=== PATIENT | female | born 1965 | race Caucasian/White ===

== ENCOUNTER 2017-08-25 12:17 | Day surgery (SDC) | payer OTHER, BC ==
[~2017-08-25 12:17] MED LIST: Acetaminophen/HYDROcodone 325-5 MG Tab PO PRN; Lactated Ringers 1,000 ML IV SCH; Lidocaine 1% 20 ML MDV ONE; Lidocaine 2% 5 ML SDV ONE; Midazolam 1 MG/ML 2 ML SDV ONE; Ondansetron 4 MG/2 ML SDV ONE; Propofol 200 MG/20 ML SDV ONE; ceFAZolin 1 GM in Premix Bag 1 BAG IV SCH; ceFAZolin 2 GM in Premix Bag 1 BAG IV SCH; fentaNYL 100 MCG/2 ML SDV ONE
--- NOTE | 2017-08-25 13:18 | PCM.PREANE ---
Preanesthetic Assessment - Anesthesia/Transfusion/Family Hx Anesthesia History: Prior Anesthesia Without Reaction Family History of Anesthesia Reaction: No Transfusion History: Prior Transfusion Without Reaction - Review of Systems General: No Symptoms Pulmonary: No Symptoms Cardiovascular: No Symptoms Gastrointestinal: No Symptoms Neurological: No Symptoms Other: Reports: None - Physical Assessment NPO Status Date: 08/24/17 NPO Status Time: 19:00 O2 Sat by Pulse Oximetry: 96 Respiratory Rate: 16 Vital Signs: Last Vital Signs Temp 36.8 C 08/25/17 12:30 Pulse 78 08/25/17 12:30 Resp 16 08/25/17 12:30 BP 122/61 08/25/17 12:30 Pulse Ox 96 08/25/17 12:30 Height: 1.63 m Weight: 77.111 kg ASA Class: 2 Mental Status: Alert & Oriented x3 Airway Class: Mallampati = 1 Dentition: Reports: Normal Dentition ROM/Head Extension: Full Lungs: Clear to Auscultation, Normal Respiratory Effort Cardiovascular: Regular Rate, Regular Rhythm - Allergies Allergies/Adverse Reactions: Allergies Allergy/AdvReac Type Severity Reaction Status Date / Time ketorolac [From Toradol] Allergy Rash Verified 08/19/17 10:25 - Anesthesia Plan Pre-Op Medication Ordered: None - Acknowledgements Anesthesia Type Planned: General Anesthesia Pt an Appropriate Candidate for the Planned Anesthesia: Yes Alternatives and Risks of Anesthesia Discussed w Pt/Guardian: Yes Pt/Guardian Understands and Agrees with Anesthesia Plan: Yes Additional Comments: pmh: htn, hld PreAnesthesia Questionnaire HEENT History: Reports: Other (See Below) Other HEENT History: wears glasses Cardiovascular History: Reports: Hypertension Genitourinary History: Reports: None 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: Musculoskeletal History: Reports: Other (See Below) Other Musculoskeletal History: back spasms Hematologic History: Reports: Anemia, Blood Transfusion(s) Other Hematologic History: blood transfusion after hysterectomy - Past Surgical History Head Surgeries/Procedures: Reports: None Female Surgical History: Reports: Breast Biopsy, Hysterectomy Oncologic Surgical History: Reports: Biopsy of Breast - SUBSTANCE USE Smoking Status *Q: Former Smoker Tobacco Use Within Last Twelve Months: No Recreational Drug Use History: No - HOME MEDS Home Medications: Home Meds Cholecalciferol (Vitamin D3) [Vitamin D3] 2,000 units PO DAILY 08/19/17 [History ] Ibuprofen 2 - 3 tab PO ASDIRECTED PRN 08/19/17 [History] Lisinopril 10 mg PO DAILY 08/19/17 [History] - CURRENT (IN HOUSE) MEDS Current Meds: Current Medications Hydrocodone Bitart/Acetaminophen (Macon 325-5 Mg) 1 - 2 tab PO Q4H PRN PRN Reason: Pain Lactated Ringer's (Ringers, Lactated) 1,000 mls @ 100 mls/hr IV ASDIRECTED ELAINE Last Admin: 08/25/17 12:40 Dose: 100 mls/hr Cefazolin Sodium/Dextrose 1 gm (/ Premix) 50 mls @ 100 mls/hr IV ONCALL [facility] Discontinued Medications Fentanyl (Sublimaze) Confirm Administered Dose 100 mcg .ROUTE .STK-MED ONE Stop: 08/25/17 11:43 Cefazolin Sodium/Dextrose 2 gm (/ Premix) 50 mls @ 100 mls/hr IV ONCALL [facility] Lidocaine (Xylocaine-Mpf 2%) Confirm Administered Dose 5 ml .ROUTE .STK-MED ONE Stop: 08/25/17 11:43 Lidocaine HCl (Xylocaine 1%) Confirm Administered Dose 20 ml .ROUTE .STK-MED ONE Stop: 08/25/17 07:29 Midazolam HCl (Versed 1 Mg/Ml) Confirm Administered Dose 2 mg .ROUTE .STK-MED ONE Stop: 08/25/17 11:43 Ondansetron HCl (Zofran) Confirm Administered Dose 4 mg .ROUTE .STK-MED ONE Stop: 08/25/17 11:43 Propofol (Diprivan 20 Ml) Confirm Administered Dose 800 mg .ROUTE .STK-MED ONE Stop: 08/25/17 11:43
[2017-08-25] MEDS ORDERED: HYDROmorphone 2 MG/ML Syringe ONE (14:53)
[2017-08-25] MEDS ORDERED: Phenylephrine/Normal Saline 100 MCG/ML 10 ML Syringe ONE (15:17)
--- NOTE | 2017-08-25 15:34 | PCM.OPNOTE ---
- General Post-Op/Procedure Note Date of Surgery/Procedure: 08/25/17 Operative Procedure(s): L knee arthroscopy with chondroplasty of the medial femoral condyle and arthroscopically aided treatment of medial tibial plateau fracture Post-Op Diagnosis: L knee DJD, left medial tibial plateau fracture Primary Surgeon: Samantha Melo Senior Courtroom Clerk: Millie Srinivasan in mLs: 5 Condition: Good Free Text/Narrative:: tt=32 min #[id number]
[2017-08-25] MEDS: fentaNYL 100 MCG/2 ML SDV IVPUSH PRN ×2 (15:45→16:48)
--- NOTE | 2017-08-25 15:53 | PCM.POSTAN ---
POST ANESTHESIA ASSESSMENT - MENTAL STATUS Mental Status: Alert, Oriented - RESPIRATORY Respiratory Status: Respiratory Rate WNL, Airway Patent, O2 Saturation Stable - CARDIOVASCULAR CV Status: Pulse Rate WNL, Blood Pressure Stable - GASTROINTESTINAL GI Status: No Symptoms - POST OP HYDRATION Hydration Status: Adequate & Stable
--- NOTE | 2017-08-25 16:14 | PCM48HPAN ---
Post Anesthesia Note - EVALUATION WITHIN 48HRS OF ANESTHETIC Vital Signs in Normal Range: Yes Patient Participated in Evaluation: Yes Respiratory Function Stable: Yes Airway Patent: Yes Cardiovascular Function Stable: Yes Hydration Status Stable: Yes Pain Control Satisfactory: Yes Nausea and Vomiting Control Satisfactory: Yes Mental Status Recovered: Yes
--- NOTE | 2017-08-25 16:56 | CR ---
EXAMINATION: Unspecified knee HISTORY: Surgery COMPARISON: MRI dated 05/21/2017 TECHNIQUE: 5 operative control films provided. FINDINGS/IMPRESSION: Control films demonstrate hardware projecting over the tibial plateau likely the left knee.
--- NOTE | 2017-08-25 20:52 | OR ---
SURGEON: Samantha Melo MD DATE OF PROCEDURE: 08/25/2017 PREOPERATIVE DIAGNOSES: 1. Left knee degenerative joint disease. 2. Left knee medial tibial plateau fracture. POSTOPERATIVE DIAGNOSES: 1. Left knee degenerative joint disease. 2. Left knee medial tibial plateau fracture. PROCEDURE: 1. Left knee arthroscopy with chondroplasty of the medial femoral condyle. 2. Arthroscopically aided treatment of a left medial tibial plateau fracture. LYE PEEL OPERATOR: CHRIS Laura. ANESTHESIA: General. ESTIMATED BLOOD LOSS: 5 mL. TOURNIQUET TIME: 32 minutes. COMPLICATIONS: None. DVT PROPHYLAXIS: PAS boot and MARLYN hose to the nonoperative leg. IMPLANTS USED: None. BRIEF HISTORY: Danie is a 52-year-old female who sustained an injury to her left knee approximately one year ago while at work. She has continued to have pain. An MRI did show a fracture of the medial tibial plateau. Due to her lack of response to conservative treatment, I did recommend surgical intervention. The risks and goals of the procedure were discussed with the patient and were documented preoperatively. She agreed to proceed. DESCRIPTION OF PROCEDURE: The patient was properly identified and brought to the operating room. She was transferred from the OR cart and placed on the operating table in a supine position. General anesthesia was administered. After adequate anesthesia was obtained, a well-padded tourniquet was applied to the left lower extremity. The left lower extremity was then prepped in a standard fashion using ChloraPrep solution. It was then sterilely draped. A time-out was performed to ensure correct site and procedure. Preoperative antibiotics were given. The surgical site had been marked preoperatively. An Esmarch was used to exsanguinate the left lower extremity, and the tourniquet was inflated to 250 mmHg. Lateral portal arthrotomy was established. Blunt trocar and cannula were introduced into the suprapatellar space. Camera, inflow, and outflow were assembled. The suprapatellar pouch showed no signs of synovitis. The patellofemoral joint was then visualized. Minor grade 1 to grade 2 chondromalacia was noted diffusely. The patella tracked centrally. I then extended down the lateral and medial gutter. No loose bodies were identified. I then entered the medial compartment. A medial portal arthrotomy was then established. A blunt probe was inserted. The meniscus was extensively probed. No tearing of the meniscus was noted. She did have some loose cartilaginous flaps along the medial femoral condyle. A chondroplasty was performed as this was resected back to a stable remnant. She had diffuse grade 3 chondromalacia along the medial femoral condyle. The medial tibial plateau showed diffuse grade 2 to grade 3 chondromalacia as well. I then entered the notch. Both the ACL and PCL were visualized and probed and found to be intact. I finally entered the lateral compartment. The meniscus was again probed and found to be stable. The joint surfaces showed diffuse grade 2 chondromalacia. Instruments were then removed from the knee. The MRI was visualized in the room. The bone marrow lesion was identified in all 3 planes. It appeared to involve the lateral aspect of the medial tibial plateau. A hollow-bore needle from [employer] was then placed into the approximate area of the bone marrow lesion. Its position was checked in both the AP and lateral planes and was drilled. Three side port fenestrations were visualized on the C-arm which appeared to be directly within the area of the bone marrow lesion. Calcium phosphate cement was then injected. I injected 4 mL of cement. I was able to see the blush of the cement on the C-arm. I then re-entered the knee joint to visualize the medial tibial plateau. There was no extravasation of the cement. An additional mL of cement was then placed with little resistance. No extravasation was noted at this point either. The instruments were then removed from the knee joint, and the portal sites were closed with 3-0 nylon. The fenestrated needle was then kept in place for 10 minutes as the cement was allowed to cure. It was then removed. Final C-arm images confirmed good fill of cement in the vicinity of the bone marrow lesion in both the AP and lateral views. The needle tract was closed with an interrupted 3-0 nylon. 1% lidocaine was injected along the portal tracts. Xeroform gauze was placed over the wounds, and a bulky dressing was applied. Tourniquet was then deflated. She was awakened from her anesthetic and transferred back to the operating room cart. She was brought to the recovery room in stable condition. All needle and sponge counts were correct. CELESTE / SHAUN /[id number]
== END 2017-08-25 17:50 | disposition home or self-care (01) ==
LOC: MW.SDS 12:17
PROVIDERS: ATTEND Orthopaedic Surgery
DX: S82.132A Displaced fracture of medial condyle of left tibia, initial encounter for closed fracture (principal); M17.12 Unilateral primary osteoarthritis, left knee; M94.262 Chondromalacia, left knee; I10 Essential (primary) hypertension; Z87.891 Personal history of nicotine dependence; Z88.6 Allergy status to analgesic agent; Z79.899 Other long term (current) drug therapy; Z90.710 Acquired absence of both cervix and uterus; Z98.890 Other specified postprocedural states
CPT/HCPCS: 29877; 76000; A9270; J0690; J1170; J2250; J2405; J3010; J7120; 01400; 88304; C1713; J2704

== ENCOUNTER 2021-09-25 08:14 | Observation (INO) | payer BC, OTHER ==
[2021-09-25] MEDS ORDERED: Sodium Chloride 0.9% 1,000 ML IV ONE (08:47)
[2021-09-25] MEDS ORDERED: Sodium Chloride 0.9% 10 ML Syringe FLUSH PRN (08:47)
[2021-09-25] MEDS ORDERED: Sodium Chloride 0.9% 2.5 ML Syringe FLUSH PRN (08:47)
[2021-09-25] MEDS ORDERED: Ondansetron 4 MG/2 ML SDV IVPUSH ONE ×2 (08:58→11:22)
[2021-09-25] MEDS ORDERED: HYDROmorphone 2 MG/ML Syringe IVPUSH ONE (08:58)
--- NOTE | 2021-09-25 09:19 | EDM.PDOC ---
<Odell Barnard - Last Filed: 09/25/21 12:01> ED HPI GENERAL MEDICAL PROBLEM - General Chief Complaint: Abdominal Pain Stated Complaint: R SIDE PAIN Time Seen by Provider: 09/25/21 08:19 - History of Present Illness INITIAL COMMENTS - FREE TEXT/NARRATIVE: 56-year-old female with history of ulcerative colitis and ileostomy performed 26 years ago presents with complaints of right upper quadrant pain and nausea for the past 3 months which is significantly worsened over the past 24 hours. 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 This morning at work her chronic right upper quadrant pain significantly worsened to 8/10 pain which is now radiating to the back. As per patient, she had ulcerative colitis 26 years ago and had ileostomy done with no follow-up. She has not had a CT scan since and is not following GI. She recently saw general surgery who has scheduled her for CT abdomen next week. Patient has a history of hypertension. Patient is taking gabapentin and lisinopril. Patient states she takes ibuprofen multiple times a week. No history of ulcers or GERD. Denies chest pain, palpitations, lightheadedness, loss of consciousness, shortness of breath, cough, fever or chills. Patient has ileostomy placed in the right lower quadrant which is CDI. Denies changes in stool color. No bloody stools or dark-colored stools. Denies history of gallbladder disease. Patient had a hysterectomy 12 years ago. Denies smoking. Denies alcohol use. Denies drug use. Currently not sexually active. CBC unremarkable. Lipase 774. UA: Trace leukocyte esterase, culture pending. Awaiting ultrasound results. Patient made n.p.o. Patient has received Dilaudid and pain is improved. 1 L normal saline bolus. 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: Musculoskeletal History: Reports: Other (See Below) Other Musculoskeletal History: back spasms Hematologic History: Reports: Anemia, Blood Transfusion(s) Other Hematologic History: blood transfusion after hysterectomy - Infectious Disease History Infectious Disease History: Reports: Chicken Pox - Past Surgical History Head Surgeries/Procedures: Reports: None GI Surgical History: Reports: Colostomy Female Surgical History: Reports: Breast Biopsy, Hysterectomy Oncologic Surgical History: Reports: Biopsy of Breast Social & Family History - Family History Family Medical History: No Pertinent Family History - Caffeine Use Caffeine Use: Reports: None - Recreational Drug Use Recreational Drug Use: No ED ROS GENERAL - Review of Systems Review Of Systems: See Below Constitutional: Denies: Fever, Chills Respiratory: Denies: Shortness of Breath, Wheezing, Pleuritic Chest Pain, Cough Cardiovascular: Denies: Chest Pain, Edema, Lightheadedness, Orthopnea GI/Abdominal: Reports: Abdominal Pain, Flatus, Nausea. Denies: Anorexia, Black Stool, Bloody Stool, Constipation, Diarrhea, Decreased Appetite, Distension, Hematemesis, Hematochezia, Melena, Vomiting : Denies: Dysuria Skin: Denies: Rash Neurological: Denies: Confusion, Dizziness, Headache, Numbness, Paresthesia ED EXAM, GENERAL - Physical Exam Exam: See Below Exam Limited By: No Limitations General Appearance: Alert, Mild Distress Eye Exam: Bilateral Eye: Normal Inspection Ears: Normal External Exam Nose: Normal Inspection Throat/Mouth: Normal Inspection, Normal Lips Head: Atraumatic, Normocephalic Neck: Normal Inspection, Supple, Non-Tender Respiratory/Chest: No Respiratory Distress, Lungs Clear Cardiovascular: Normal Peripheral Pulses, Regular Rate, Rhythm, No Edema, No JVD GI/Abdominal: Other (Right upper quadrant tenderness to palpation. Epigastrium tender to palpation. Negative rebound. Nondistended abdomen. Unable to perform Dickens's. Linear incision left of umbilicus.) Extremities: Normal Inspection. No: Kellie's Sign, Leg Pain Neurological: Alert, Oriented, CN II-XII Intact, Normal Cognition, Normal Gait, No Motor/Sensory Deficits Course - Re-Assessments/Exams Free Text/Narrative Re-Assessment/Exam: 09/25/21 12:01 CT abdomen: Pancreas appears normal, it is possible to have pancreatitis. No complication of pancreatitis. Patient continues to have nausea after 2 doses of Zofran. Called and spoke with Dr. Shah who accepted the patient to be admitted for obs. Departure - Departure Disposition: Refer to Observation Clinical Impression: Abdominal pain, Pancreatitis, acute, Vomiting - Discharge Information Referrals: Kristen Weinberg MD [Primary Care Provider] - Forms: ED Department Discharge Sepsis Event Note (ED) - Evaluation Sepsis Screening Result: No Definite Risk - Problem List & Annotations (1) RUQ abdominal pain SNOMED Code(s): 350706471 Code(s): R10.11 - RIGHT UPPER QUADRANT PAIN Status: Acute Current Visit: No <Naseem Stoddard - Last Filed: 09/25/21 12:07> ED ROS GENERAL - Review of Systems Review Of Systems: Comprehensive ROS is negative, except as noted in HPI. Course - Vital Signs Last Recorded V/S: Last Vital Signs Temp 36.3 C 09/25/21 08:35 Pulse 66 09/25/21 11:18 Resp 16 09/25/21 09:07 BP 114/53 L 09/25/21 11:18 Pulse Ox 96 09/25/21 11:18 - Orders/Labs/Meds Orders: Active Orders 24 hr Category Date Time Status Admission Status [Patient Status] [ADT] Stat ADT 09/25/21 12:01 Active NPO [Nothing Per Oral Diet] [DIET] Diet 09/25/21 Breakfast Active COVID-19/FLU A+B [MOLEC] Stat Lab 09/25/21 11:50 Received CULTURE URINE [MREF] Stat Lab 09/25/21 08:30 Received Sodium Chloride 0.9% [Saline Flush] Med 09/25/21 08:47 Active 10 ml FLUSH ASDIRECTED PRN Sodium Chloride 0.9% [Saline Flush] Med 09/25/21 08:47 Active 2.5 ml FLUSH ASDIRECTED PRN Saline Lock Insert [OM.PC] Stat Oth 09/25/21 08:47 Ordered Medication Orders Sodium Chloride (Sodium Chloride 0.9% 10 Ml Syringe) 10 ml FLUSH ASDIRECTED PRN PRN Reason: Keep Vein Open Last Admin: 09/25/21 09:10 Dose: 10 ml Documented by: VICTORIA Sodium Chloride (Sodium Chloride 0.9% 2.5 Ml Syringe) 2.5 ml FLUSH ASDIRECTED PRN PRN Reason: Keep Vein Open Last Admin: 09/25/21 09:10 Dose: 2.5 ml Documented by: VICTORIA Labs: Laboratory Tests 09/25/21 09/25/21 09/25/21 Range/Units 08:30 08:35 08:35 WBC 6.21 (4.0-11.0) K/uL RBC 4.55 (4.30-5.90) M/uL Hgb 14.4 (12.0-16.0) g/dL Hct 40.7 (36.0-46.0) % MCV 89.5 (80.0-98.0) fL MCH 31.6 (27.0-32.0) pg MCHC 35.4 (31.0-37.0) g/dL RDW Std Deviation 42.3 (28.0-62.0) fl RDW Coeff of Rod 13 (11.0-15.0) % Plt Count 282 (150-400) K/uL MPV 10.20 (7.40-12.00) fL Neut % (Auto) 58.6 (48.0-80.0) % Lymph % (Auto) 31.9 (16.0-40.0) % Gordon % (Auto) 3.9 (0.0-15.0) % Eos % (Auto) 5.0 (0.0-7.0) % Baso % (Auto) 0.6 (0.0-1.5) % Neut # (Auto) 3.6 (1.4-5.7) K/uL Lymph # (Auto) 2.0 (0.6-2.4) K/uL Gordon # (Auto) 0.2 (0.0-0.8) K/uL Eos # (Auto) 0.3 (0.0-0.7) K/uL Baso # (Auto) 0.0 (0.0-0.1) K/uL Nucleated RBC % 0.0 /100WBC Nucleated RBCs # 0 K/uL Sodium 137 (136-145) mmol/L Potassium 4.4 (3.5-5.1) mmol/L Chloride 104 (98-107) mmol/L Carbon Dioxide 13.6 L (21.0-32.0) mmol/L BUN 15 (7.0-18.0) mg/dL Creatinine 0.7 (0.6-1.0) mg/dL Est Cr Clr Drug Dosing 77.49 mL/min Estimated GFR (MDRD) > 60.0 ml/min Glucose 148 H (74-106) mg/dL Calcium 9.4 (8.5-10.1) mg/dL Total Bilirubin 0.7 (0.2-1.0) mg/dL AST 29 (15-37) IU/L ALT 34 (14-63) IU/L Alkaline Phosphatase 78 (46-116) U/L Total Protein 8.0 (6.4-8.2) g/dL Albumin 4.0 (3.4-5.0) g/dL Globulin 4.0 (2.6-4.0) g/dL Albumin/Globulin Ratio 1.0 (0.9-1.6) Lipase 774 H (73-393) U/L Urine Color YELLOW Urine Appearance CLEAR Urine pH 6.0 (5.0-8.0) Ur Specific Diamond >= 1.030 (1.001-1.035) Urine Protein NEGATIVE (NEGATIVE) mg/dL Urine Glucose (UA) NEGATIVE (NEGATIVE) mg/dL Urine Ketones NEGATIVE (NEGATIVE) mg/dL Urine Occult Blood NEGATIVE (NEGATIVE) Urine Nitrite NEGATIVE (NEGATIVE) Urine Bilirubin NEGATIVE (NEGATIVE) Urine Urobilinogen 0.2 (<2.0) EU/dL Ur Leukocyte Esterase TRACE H (NEGATIVE) Urine RBC NONE SEEN (0-2/HPF) Urine WBC 1-3 (0-5/HPF) Ur Epithelial Cells MANY (NONE-FEW) Urine Bacteria 2+ H (NEGATIVE) Meds: Medications Generic Name Dose Route Start Last Admin Trade Name Freq PRN Reason Stop Dose Admin Sodium Chloride 10 ml 09/25/21 08:47 09/25/21 09:10 Sodium Chloride 0.9% 10 Ml Syringe FLUSH 10 ml ASDIRECTED PRN Administration Keep Vein Open Sodium Chloride 2.5 ml 09/25/21 08:47 09/25/21 09:10 Sodium Chloride 0.9% 2.5 Ml Syringe FLUSH 2.5 ml ASDIRECTED PRN Administration Keep Vein Open Discontinued Medications Generic Name Dose Route Start Last Admin Trade Name Freq PRN Reason Stop Dose Admin Hydromorphone HCl 1 mg 09/25/21 08:58 09/25/21 09:13 Hydromorphone 2 Mg/Ml Syringe IVPUSH 09/25/21 08:59 1 mg ONETIME ONE Administration Sodium Chloride 1,000 mls @ 999 mls/hr 09/25/21 08:47 09/25/21 09:10 Normal Saline IV 09/25/21 09:47 999 mls/hr .Bolus ONE Administration Iopamidol 100 ml 09/25/21 11:14 09/25/21 11:15 Iopamidol 755 Mg/Ml 500 Ml Multipack Bottle IVPUSH 09/25/21 11:15 100 ml ONETIME STA Administration Ondansetron HCl 4 mg 09/25/21 08:58 09/25/21 09:13 Ondansetron 4 Mg/2 Ml Sdv IVPUSH 09/25/21 08:59 4 mg ONETIME ONE Administration Ondansetron HCl 4 mg 09/25/21 11:12 Ondansetron 4 Mg/2 Ml Sdv IVPUSH Q4H PRN Nausea Ondansetron HCl 4 mg 09/25/21 11:22 09/25/21 11:34 Ondansetron 4 Mg/2 Ml Sdv IVPUSH 09/25/21 11:23 4 mg ONETIME ONE Administration - Re-Assessments/Exams Free Text/Narrative Re-Assessment/Exam: 09/25/21 10:47 I have reviewed the note and assisted in the evaluation of this patient. I agree with the resident's note. I have no additional findings. The patient has a ultrasound that is unrevealing. CT has been ordered. Departure - Departure Time of Disposition: 12:06 Condition: Good Sepsis Event Note (ED) - Focused Exam Vital Signs: Vital Signs Temp Pulse Resp BP Pulse Ox 09/25/21 11:18 66 114/53 L 96 09/25/21 10:15 51 L 105/53 L 96 09/25/21 09:07 69 16 120/69 99 09/25/21 08:35 36.3 C 69 18 108/73 99 - My Orders Last 24 Hours: My Active Orders 09/25/21 08:47 Sodium Chloride 0.9% [Saline Flush] 10 ml FLUSH ASDIRECTED PRN Sodium Chloride 0.9% [Saline Flush] 2.5 ml FLUSH ASDIRECTED PRN Saline Lock Insert [OM.PC] Stat 09/25/21 11:50 COVID-19/FLU A+B [MOLEC] Stat 09/25/21 12:01 Admission Status [Patient Status] [ADT] Stat - Assessment/Plan Last 24 Hours: My Active Orders 09/25/21 08:47 Sodium Chloride 0.9% [Saline Flush] 10 ml FLUSH ASDIRECTED PRN Sodium Chloride 0.9% [Saline Flush] 2.5 ml FLUSH ASDIRECTED PRN Saline Lock Insert [OM.PC] Stat 09/25/21 11:50 COVID-19/FLU A+B [MOLEC] Stat 09/25/21 12:01 Admission Status [Patient Status] [ADT] Stat
[2021-09-25 09:31] LABS: BLOOD UREA NITROGEN,BUN 15 mg/dL (7.0-18.0); CARBON DIOXIDE,CO2 13.6 mmol/L (21.0-32.0); CHLORIDE,CL 104 mmol/L (98-107); GLUCOSE RANDOM 148 mg/dL (74-106); LIPASE 774 U/L (73-393); POTASSIUM,K 4.4 mmol/L (3.5-5.1); SODIUM,NA 137 mmol/L (136-145)
--- NOTE | 2021-09-25 10:44 | US ---
Indication: Pain Technique: Sonography of the abdomen was performed limited to the structures discussed below Comparison: None Findings: Liver is mildly prominent at 15.9 centimeters. However, there is no focal mass and there is no intra or extrahepatic biliary ductal dilatation. Echogenicity the liver is normal. No perihepatic ascites. The gallbladder wall thickness is normal. There is no sludge, calculus or pericholecystic fluid collection. There is tenderness to transducer palpation in the right upper quadrant. Gallbladder wall is 2.4 millimeters which is normal The common duct measures 2.4 millimeters which is normal The right kidney measures 10.6 x 3.6 x 5.3 centimeters and shows no evident abnormality. The pancreas as visualized appears normal. Portions were obscured by bowel gas Impression: 1. There is tenderness to transducer palpation in the right upper quadrant. However, the gallbladder appears normal. No evidence of cholelithiasis, cholecystitis or common duct obstruction. 2. Mildly prominent liver but normal echogenicity and no focal mass. 3. Normal appearing right kidney and pancreas. Dictated by Chintan Talavera MD @ 09/25/2021 10:42:05 AM (Electronically Signed)
[2021-09-25] MEDS ORDERED: Ondansetron 4 MG/2 ML SDV IVPUSH PRN ×2 (11:12→13:58)
[2021-09-25] MEDS ORDERED: Iopamidol 755 MG/ML 500 ML Multipack Bottle IVPUSH STA (11:14)
--- NOTE | 2021-09-25 11:42 | CT ---
INDICATION: Pancreatitis COMPARISON: No prior CTs. TECHNIQUE: CT examination of the abdomen and pelvis was performed following the uneventful intravenous administration of 100 cc of Isovue 370. Thin section axial images were obtained from the lung bases through the pubic symphysis. Oral contrast was not administered. Please note that all CT scans at this facility use dose modulation, iterative reconstruction, and/or weight-based dosing when appropriate to reduce radiation dose to as low as reasonably achievable. FINDINGS: LUNG BASES: The lung bases as visualized appear normal.The heart size is normal at the lung bases. LIVER/BILIARY SYSTEM:Mildly prominent liver. No focal solid mass or biliary ductal dilatation.1 centimeters cyst in the left lobe. Gallbladder appears normal ADRENALS: Normal KIDNEYS, URETERS and BLADDER:A few tiny low-density renal cortical lesions bilaterally likely all benign. No evidence of obstructive uropathy SPLEEN:Normal appearance. PANCREAS: The pancreas appears normal. It is possible to have pancreatitis as evidence by elevated lipase without CT findings. In any event, there is no complication of pancreatitis on the current exam. RETROPERITONEUM and MESENTERY: There is no mass, adenopathy or aortic aneurysm. GASTROINTESTINAL SYSTEM: Postoperative changes. Right lower quadrant stoma. No acute GI findings. PELVIS: No mass, adenopathy or free fluid.Postoperative change OSSEOUS STRUCTURES and ABDOMINAL WALL: There is an age-appropriate appearance of the osseous structures.No significant abdominal wall defect. OTHER: No free fluid or free air. IMPRESSION: 1. The pancreas appears normal. In this possible have pancreatitis with the CT findings. In any event, there is no visible complication of pancreatitis on this exam. 2. Other incidental nonacute appearing findings as discussed above Please note that all CT scans at this facility use dose modulation, iterative reconstruction, and/or weight-based dosing when appropriate to reduce radiation dose to as low as reasonably achievable. Dictated by Chintan Talavera MD @ 09/25/2021 11:41:55 AM (Electronically Signed)
[2021-09-25 12:36] LABS: CORONAVIRUS COVID-19 NAA NEGATIVE (NEGATIVE); INFLUENZA A NAA NEGATIVE (NEGATIVE); INFLUENZA B NAA NEGATIVE (NEGATIVE)
[2021-09-25] MEDS ORDERED: Ondansetron 4 MG Tab PO PRN (13:58)
[2021-09-25] MEDS ORDERED: Morphine 2 MG/ML SYRINGE IVPUSH PRN (13:59)
--- NOTE | 2021-09-25 14:05 | PCM.HP.2 ---
H&P History of Present Illness - General Date of Service: 09/25/21 Admit Problem/Dx: Admission Diagnosis/Problem Admission Diagnosis/Problem Vomiting - History of Present Illness Initial Comments - Free Text/Narative: 56-year-old female with history of ulcerative colitis and ileostomy performed 26 years ago presents with complaints of right upper quadrant pain and nausea for the past 3 months which is significantly worsened over the past 24 hours. 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 The pain intesified to an 8/10 and radiated t o her back. She recently saw general surgery Dr. Patel for the off and on chronic abdominal pain who has scheduled her for CT abdomen next week. Patient has a history of hypertension. Patient is taking gabapentin and lisinopril. Patient states she takes ibuprofen multiple times a week. She has no h/o PUD, gall bladder disease or gastritis. She denies use of ASA or NSAIDS. She denies having any fever or chills. Patient has ileostomy placed in the right lower quadrant. She denies having any diarrhea, constipation or changes in stool color. No bloody stools or dark-colored stools. She denies having any ETOH or illicit drug use. CT abd in the ED was unremarkable. Her lipase was modestly elevated to >750 abdomen Pain Score (Numeric/FACES): 8 - Related Data Allergies/Adverse Reactions: Allergies Allergy/AdvReac Type Severity Reaction Status Date / Time ketorolac [From Toradol] Allergy Rash Verified 09/25/21 15:30 Home Medications: Home Meds Lisinopril 10 mg PO DAILY 08/19/17 [History] Gabapentin [Neurontin] 100 mg PO BEDTIME 09/25/21 [History] Past Medical History HEENT History: Reports: Other (See Below) Other HEENT History: wears glasses Cardiovascular History: Reports: Hypertension Gastrointestinal History: Reports: Other (See Below) Other Gastrointestinal History: Ulcerative colitis 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: Musculoskeletal History: Reports: Other (See Below) Other Musculoskeletal History: back spasms Hematologic History: Reports: Anemia, Blood Transfusion(s) Other Hematologic History: blood transfusion after hysterectomy - Infectious Disease History Infectious Disease History: Reports: Chicken Pox - Past Surgical History Head Surgeries/Procedures: Reports: None GI Surgical History: Reports: Colostomy Female Surgical History: Reports: Breast Biopsy, Hysterectomy Oncologic Surgical History: Reports: Biopsy of Breast Social & Family History - Family History Family Medical History: No Pertinent Family History - Caffeine Use Caffeine Use: Reports: None - Recreational Drug Use Recreational Drug Use: No H&P Review of Systems - Review of Systems: Review Of Systems: Comprehensive ROS is negative, except as noted in HPI. Exam - Exam Exam: See Below - Vital Signs Vital Signs: Last Vital Signs Temp 98.1 F 09/25/21 13:44 Pulse 73 09/25/21 13:44 Resp 16 09/25/21 13:44 BP 110/67 09/25/21 13:44 Pulse Ox 96 09/25/21 13:44 Weight: 140 lb - Exam Physical Exam Comments:: General: middle aged female. In no acute distress CVS: S1S2 appreciated. RRR lungs: clear bilaterally pa: tender in the RUQ. bowel sounds present ext: no clubbing, cyanosis or edema neuro: no focal deficits psych: stable mood and affect - Patient Data Lab Results Last 24 hrs: Laboratory Results - last 24 hr 09/25/21 09/25/21 09/25/21 Range/Units 08:30 08:35 08:35 WBC 6.21 (4.0-11.0) K/uL RBC 4.55 (4.30-5.90) M/uL Hgb 14.4 (12.0-16.0) g/dL Hct 40.7 (36.0-46.0) % MCV 89.5 (80.0-98.0) fL MCH 31.6 (27.0-32.0) pg MCHC 35.4 (31.0-37.0) g/dL RDW Std Deviation 42.3 (28.0-62.0) fl RDW Coeff of Rod 13 (11.0-15.0) % Plt Count 282 (150-400) K/uL MPV 10.20 (7.40-12.00) fL Neut % (Auto) 58.6 (48.0-80.0) % Lymph % (Auto) 31.9 (16.0-40.0) % [place] % (Auto) 3.9 (0.0-15.0) % Eos % (Auto) 5.0 (0.0-7.0) % Baso % (Auto) 0.6 (0.0-1.5) % Neut # (Auto) 3.6 (1.4-5.7) K/uL Lymph # (Auto) 2.0 (0.6-2.4) K/uL [place] # (Auto) 0.2 (0.0-0.8) K/uL Eos # (Auto) 0.3 (0.0-0.7) K/uL Baso # (Auto) 0.0 (0.0-0.1) K/uL Nucleated RBC % 0.0 /100WBC Nucleated RBCs # 0 K/uL Sodium 137 (136-145) mmol/L Potassium 4.4 (3.5-5.1) mmol/L Chloride 104 (98-107) mmol/L Carbon Dioxide 13.6 L (21.0-32.0) mmol/L BUN 15 (7.0-18.0) mg/dL Creatinine 0.7 (0.6-1.0) mg/dL Est Cr Clr Drug Dosing 77.49 mL/min Estimated GFR (MDRD) > 60.0 ml/min Glucose 148 H (74-106) mg/dL Calcium 9.4 (8.5-10.1) mg/dL Total Bilirubin 0.7 (0.2-1.0) mg/dL AST 29 (15-37) IU/L ALT 34 (14-63) IU/L Alkaline Phosphatase 78 (46-116) U/L Total Protein 8.0 (6.4-8.2) g/dL Albumin 4.0 (3.4-5.0) g/dL Globulin 4.0 (2.6-4.0) g/dL Albumin/Globulin Ratio 1.0 (0.9-1.6) Lipase 774 H (73-393) U/L Urine Color YELLOW Urine Appearance CLEAR Urine pH 6.0 (5.0-8.0) Ur Specific [place] >= 1.030 (1.001-1.035) Urine Protein NEGATIVE (NEGATIVE) mg/dL Urine Glucose (UA) NEGATIVE (NEGATIVE) mg/dL Urine Ketones NEGATIVE (NEGATIVE) mg/dL Urine Occult Blood NEGATIVE (NEGATIVE) Urine Nitrite NEGATIVE (NEGATIVE) Urine Bilirubin NEGATIVE (NEGATIVE) Urine Urobilinogen 0.2 (<2.0) EU/dL Ur Leukocyte Esterase TRACE H (NEGATIVE) Urine RBC NONE SEEN (0-2/HPF) Urine WBC 1-3 (0-5/HPF) Ur Epithelial Cells MANY (NONE-FEW) Urine Bacteria 2+ H (NEGATIVE) Influenza Type A RNA (NEGATIVE) Influenza Type B RNA (NEGATIVE) SARS-CoV-2 RNA (KESHA) (NEGATIVE) 09/25/21 Range/Units 11:50 WBC (4.0-11.0) K/uL RBC (4.30-5.90) M/uL Hgb (12.0-16.0) g/dL Hct (36.0-46.0) % MCV (80.0-98.0) fL MCH (27.0-32.0) pg MCHC (31.0-37.0) g/dL RDW Std Deviation (28.0-62.0) fl RDW Coeff of Rod (11.0-15.0) % Plt Count (150-400) K/uL MPV (7.40-12.00) fL Neut % (Auto) (48.0-80.0) % Lymph % (Auto) (16.0-40.0) % [place] % (Auto) (0.0-15.0) % Eos % (Auto) (0.0-7.0) % Baso % (Auto) (0.0-1.5) % Neut # (Auto) (1.4-5.7) K/uL Lymph # (Auto) (0.6-2.4) K/uL [place] # (Auto) (0.0-0.8) K/uL Eos # (Auto) (0.0-0.7) K/uL Baso # (Auto) (0.0-0.1) K/uL Nucleated RBC % /100WBC Nucleated RBCs # K/uL Sodium (136-145) mmol/L Potassium (3.5-5.1) mmol/L Chloride (98-107) mmol/L Carbon Dioxide (21.0-32.0) mmol/L BUN (7.0-18.0) mg/dL Creatinine (0.6-1.0) mg/dL Est Cr Clr Drug Dosing mL/min Estimated GFR (MDRD) ml/min Glucose (74-106) mg/dL Calcium (8.5-10.1) mg/dL Total Bilirubin (0.2-1.0) mg/dL AST (15-37) IU/L ALT (14-63) IU/L Alkaline Phosphatase (46-116) U/L Total Protein (6.4-8.2) g/dL Albumin (3.4-5.0) g/dL Globulin (2.6-4.0) g/dL Albumin/Globulin Ratio (0.9-1.6) Lipase (73-393) U/L Urine Color Urine Appearance Urine pH (5.0-8.0) Ur Specific [place] (1.001-1.035) Urine Protein (NEGATIVE) mg/dL Urine Glucose (UA) (NEGATIVE) mg/dL Urine Ketones (NEGATIVE) mg/dL Urine Occult Blood (NEGATIVE) Urine Nitrite (NEGATIVE) Urine Bilirubin (NEGATIVE) Urine Urobilinogen (<2.0) EU/dL Ur Leukocyte Esterase (NEGATIVE) Urine RBC (0-2/HPF) Urine WBC (0-5/HPF) Ur Epithelial Cells (NONE-FEW) Urine Bacteria (NEGATIVE) Influenza Type A RNA NEGATIVE (NEGATIVE) Influenza Type B RNA NEGATIVE (NEGATIVE) SARS-CoV-2 RNA (KESHA) NEGATIVE (NEGATIVE) Result Diagrams: 09/25/21 08:35 09/25/21 08:35 Sepsis Event Note - Evaluation Sepsis Screening Result: No Definite Risk - Focused Exam Vital Signs: Vital Signs Temp Pulse Resp BP Pulse Ox 09/25/21 13:44 98.1 F 73 16 110/67 96 09/25/21 12:44 67 109/63 99 09/25/21 11:44 58 L 100/58 L 94 L 09/25/21 11:18 66 114/53 L 96 09/25/21 10:15 51 L 105/53 L 96 09/25/21 09:07 69 16 120/69 99 09/25/21 08:35 97.3 F 69 18 108/73 99 - Problem List (1) Pancreatitis, acute SNOMED Code(s): 442574431 ICD Code: K85.90 - ACUTE PANCREATITIS WITHOUT NECROSIS OR INFECTION, UNSP Status: Acute Current Visit: Yes Qualifiers: Pancreatitis type: unspecified pancreatitis type (2) RUQ abdominal pain SNOMED Code(s): 661793273 ICD Code: R10.11 - RIGHT UPPER QUADRANT PAIN Status: Acute Current Visit: No Problem List Initiated/Reviewed/Updated: Yes Orders Last 24hrs: Active Orders 24 hr Category Date Time Status Admission Status [Patient Status] [ADT] Stat ADT 09/25/21 12:01 Active Notify Provider Consults [RC] ASDIRECTED Care 09/25/21 13:53 Ordered Oxygen Therapy [RC] PRN Care 09/25/21 13:53 Ordered Up ad Margaux [RC] ASDIRECTED Care 09/25/21 13:53 Ordered VTE/DVT Education [RC] PER UNIT ROUTINE Care 09/25/21 13:53 Ordered Vital Signs [RC] Q4H Care 09/25/21 13:53 Ordered Consult to Physician [CONS] Stat Cons 09/25/21 13:52 Ordered NPO [Nothing Per Oral Diet] [DIET] Diet 09/25/21 Breakfast Active Nothing per Oral Now Diet [DIET] Diet 09/25/21 Lunch Ordered Abdomen wo Cont [MR] Stat Exams 09/25/21 13:56 Ordered HIDA with EF [Cholescintigraphy w Pharm Int] [NM] Stat Exams 09/25/21 13:57 Ordered CULTURE URINE [MREF] Stat Lab 09/25/21 08:30 Received H PYLORI STOOL ANTIGEN [MREF] Stat Lab 09/25/21 13:55 Ordered Heparin Sodium Med 09/25/21 14:00 Ordered 5,000 units SUBCUT Q8H Morphine Med 09/25/21 13:59 Ordered 2 mg IVPUSH Q2H PRN Ondansetron [Zofran] Med 09/25/21 13:58 Ordered 4 mg IVPUSH Q6H PRN Ondansetron [Zofran] Med 09/25/21 13:58 Ordered 4 mg PO Q6H PRN Sodium Chloride 0.9% @ 150 MLS/HR (1,000ml) Med 09/25/21 14:00 Ordered Sodium Chloride 0.9% [Normal Saline] 1,000 ml IV ASDIRECTED Sodium Chloride 0.9% [Saline Flush] Med 09/25/21 08:47 Active 10 ml FLUSH ASDIRECTED PRN Sodium Chloride 0.9% [Saline Flush] Med 09/25/21 08:47 Active 2.5 ml FLUSH ASDIRECTED PRN Saline Lock Insert [OM.PC] Stat Oth 09/25/21 08:47 Ordered Resuscitation Status Routine Resus Stat 09/25/21 13:53 Ordered Medication Orders Heparin Sodium (Porcine) (Heparin Sodium 5,000 Units/Ml Vial) 5,000 units SUBCUT Q8H [facility] Sodium Chloride (Normal Saline) 1,000 mls @ 150 mls/hr IV ASDIRECTED ELAINE Stop: 09/26/21 14:01 Morphine Sulfate (Morphine 2 Mg/Ml Syringe) 2 mg IVPUSH Q2H PRN PRN Reason: Abdominal Pain Ondansetron HCl (Ondansetron 4 Mg Tab) 4 mg PO Q6H PRN PRN Reason: Nausea/Vomiting Ondansetron HCl (Ondansetron 4 Mg/2 Ml Sdv) 4 mg IVPUSH Q6H PRN PRN Reason: Nausea/Vomiting Sodium Chloride (Sodium Chloride 0.9% 10 Ml Syringe) 10 ml FLUSH ASDIRECTED PRN PRN Reason: Keep Vein Open Last Admin: 09/25/21 09:10 Dose: 10 ml Documented by: VICTORIA Sodium Chloride (Sodium Chloride 0.9% 2.5 Ml Syringe) 2.5 ml FLUSH ASDIRECTED PRN PRN Reason: Keep Vein Open Last Admin: 09/25/21 09:10 Dose: 2.5 ml Documented by: VICTORIA Assessment/Plan Comment:: RUQ abdominal pain etiology is unclear could be due to gall bladder disease, gastritis, pancreatitis or other causes Admit to the medical floor. check MRI abdomen w/o contrast check a HIDA scan consult General surgery Dr. Patel Acute pancreatitis npo status hydration pain and nausea control DVT prophylaxis SQ lovenox Full code status - Mortality Measure Prognosis:: Good
[2021-09-25] MEDS: Sodium Chloride 0.9% 1,000 ML IV SCH ×2 (15:24→23:06)
--- NOTE | 2021-09-25 15:30 | MR ---
INDICATION: Pain TECHNIQUE: MRI of the pelvis. T1 and T2 weighted images. Diffusion weighted imaging. FINDINGS: Urinary bladder: Unremarkable. Lymph nodes: No pathologic enlargement. GI tract: The bowel loops are normal in caliber. A ileostomy is present. Miscellaneous: Post this surgical changes are suggested this could be from previous rectal cancer treatment and resection. Uterus is absent. Skeletal: Pelvic surgical clips susceptibility artifact. IMPRESSION: Previous rectal carcinoma surgery with resection and ileostomy diversion right lower quadrant. Uterus and ovaries are also surgically absent. Susceptibility changes from pelvic surgical clips along the sidewall. No other significant change from recent CT exam 09/25/2021. There is a separate abdominal MRI report. Dictated by Vaughn Barakat MD @ 09/25/2021 3:29:08 PM (Electronically Signed)
--- NOTE | 2021-09-25 15:45 | MR ---
Indication: Abdominal pain. Technique: MRI of the abdomen without IV contrast. Comparison: CT of the abdomen and pelvis 09/25/2021. Abdominal ultrasound 09/25/2021. Findings: Non cirrhotic configuration liver. No significant hepatic steatosis. Small T2 hyperintense lesions in the inferior right hepatic lobe and lateral segment of the left hepatic lobe likely represent cysts. The unenhanced gallbladder, spleen, and adrenal glands are normal in appearance. The common bile duct measures upper limits of normal at 6 mm in diameter. No intraductal filling defects identified. There is mild prominence of the pancreatic head. Trace edema is seen around the pancreatic head and adjacent transverse duodenum. No significant duodenal wall thickening. Findings may represent mild focal acute pancreatitis. No dilation of the pancreatic duct. No pseudocyst. No hydronephrosis. Small bilateral renal cysts. No bowel dilation. Right lower quadrant ostomy. No lymphadenopathy. Impression: 1. The pancreatic head is mildly prominent in size with trace surrounding edema. Findings may represent mild focal acute pancreatitis. Correlate with laboratory values. 2. Common bile duct measures upper limits of normal. No intraductal filling defects identified, however dedicated MRCP sequence was not acquired. Dictated by Jenn Martínez MD @ 09/25/2021 3:44:03 PM (Electronically Signed)
[2021-09-25] MEDS: Heparin Sodium 5,000 Units/ML Vial SUBCUT SCH ×2 (15:47→23:06)
--- NOTE | 2021-09-25 18:24 | PCM.CONS ---
H&P History of Present Illness - General Date of Service: 09/25/21 Admit Problem/Dx: Admission Diagnosis/Problem Admission Diagnosis/Problem Vomiting Source of Information: Patient History Limitations: Reports: No Limitations - History of Present Illness Initial Comments - Free Text/Narative: Patient is a 56 year old female who presents with epigastric abdominal pain. She has had worsening pain in the RUQ, epigastric area and recently saw me in clinic. She was scheduled for a RUQ US and CT scan of the abdomen pelvis in the near future. She has a history of ulcerative colitis and a total colectomy and end ileostomy placement 26 years ago. This morning she was bending over at work and developed severe sharp epigastric pain that radiated to her back. She denies nausea and did not vomit. The pain continued to increase in severity and was made worse with deep breathing. She presented to the ER. Her vitals were stable. Her CBC was normal. CMP showed a mildly elevated glucose and a mildly elevated lipase at 774. Her LFTs and bilirubin were normal. CT abdomen pelvis and RUQ showed no biliary pathology and no acute abdominal pathology. She was admitted to the hospitalist service for pancreatitis. I was consulted. MRI of the abdomen pelvis without contrast was ordered. This showed mild edema of the head of the pancreas and adjacent duodenum. Gallbladder was normal. CBD was upper limits of normal but showed no signs of obstruction. She was admitted to the floor, made NPO, given IVF and pain medication. She states that the IV narcotics are making her nauseated. She is still having output from her ostomy but it has been less. abdomen Pain Score (Numeric/FACES): 6 - Related Data Allergies/Adverse Reactions: Allergies Allergy/AdvReac Type Severity Reaction Status Date / Time ketorolac [From Toradol] Allergy Rash Verified 09/25/21 15:30 Home Medications: Home Meds Lisinopril 10 mg PO DAILY 08/19/17 [History] Gabapentin [Neurontin] 100 mg PO BEDTIME 09/25/21 [History] Past Medical History HEENT History: Reports: Other (See Below) Other HEENT History: wears glasses Cardiovascular History: Reports: Hypertension Gastrointestinal History: Reports: Other (See Below) Other Gastrointestinal History: Ulcerative colitis Genitourinary History: Reports: None [employer] History: Musculoskeletal History: Reports: Other (See Below) Other Musculoskeletal History: back spasms Hematologic History: Reports: Anemia, Blood Transfusion(s) Other Hematologic History: blood transfusion after hysterectomy - Infectious Disease History Infectious Disease History: Reports: Chicken Pox - Past Surgical History Head Surgeries/Procedures: Reports: None GI Surgical History: Reports: Colostomy Female Surgical History: Reports: Breast Biopsy, Hysterectomy Oncologic Surgical History: Reports: Biopsy of Breast Social & Family History - Family History Family Medical History: No Pertinent Family History - Tobacco Use Tobacco Use Status *Q: Never Tobacco User - Caffeine Use Caffeine Use: Reports: Soda - Recreational Drug Use Recreational Drug Use: No H&P Review of Systems - Review of Systems: Review Of Systems: Comprehensive ROS is negative, except as noted in HPI. Exam - Exam Exam: See Below - Vital Signs Vital Signs: Last Vital Signs Temp 36.7 C 09/25/21 13:44 Pulse 73 09/25/21 14:45 Resp 16 09/25/21 13:44 BP 107/67 09/25/21 14:45 Pulse Ox 96 09/25/21 16:28 Weight: 75.886 kg - Exam Quality Assessment: Supplemental Oxygen General: Alert, Oriented HEENT: Conjunctiva Clear, Mucosa Moist & [place], Posterior Pharynx Clear Neck: Trachea Midline Lungs: Clear to Auscultation, Normal Respiratory Effort Cardiovascular: Regular Rate, Regular Rhythm GI/Abdominal Exam: Soft, No Distention, No Mass, Tender (epigastric area), Other (Ostomy bag in place. ) Extremities: Normal Inspection Skin: Warm, Dry, Intact Psychiatric: Alert, Normal Affect, Normal Mood - Patient Data Lab Results Last 24 hrs: Laboratory Results - last 24 hr 09/25/21 09/25/21 09/25/21 Range/Units 08:30 08:35 08:35 WBC 6.21 (4.0-11.0) K/uL RBC 4.55 (4.30-5.90) M/uL Hgb 14.4 (12.0-16.0) g/dL Hct 40.7 (36.0-46.0) % MCV 89.5 (80.0-98.0) fL MCH 31.6 (27.0-32.0) pg MCHC 35.4 (31.0-37.0) g/dL RDW Std Deviation 42.3 (28.0-62.0) fl RDW Coeff of Rod 13 (11.0-15.0) % Plt Count 282 (150-400) K/uL MPV 10.20 (7.40-12.00) fL Neut % (Auto) 58.6 (48.0-80.0) % Lymph % (Auto) 31.9 (16.0-40.0) % [place] % (Auto) 3.9 (0.0-15.0) % Eos % (Auto) 5.0 (0.0-7.0) % Baso % (Auto) 0.6 (0.0-1.5) % Neut # (Auto) 3.6 (1.4-5.7) K/uL Lymph # (Auto) 2.0 (0.6-2.4) K/uL [place] # (Auto) 0.2 (0.0-0.8) K/uL Eos # (Auto) 0.3 (0.0-0.7) K/uL Baso # (Auto) 0.0 (0.0-0.1) K/uL Nucleated RBC % 0.0 /100WBC Nucleated RBCs # 0 K/uL Sodium 137 (136-145) mmol/L Potassium 4.4 (3.5-5.1) mmol/L Chloride 104 (98-107) mmol/L Carbon Dioxide 13.6 L (21.0-32.0) mmol/L BUN 15 (7.0-18.0) mg/dL Creatinine 0.7 (0.6-1.0) mg/dL Est Cr Clr Drug Dosing 77.49 mL/min Estimated GFR (MDRD) > 60.0 ml/min Glucose 148 H (74-106) mg/dL Calcium 9.4 (8.5-10.1) mg/dL Total Bilirubin 0.7 (0.2-1.0) mg/dL AST 29 (15-37) IU/L ALT 34 (14-63) IU/L Alkaline Phosphatase 78 (46-116) U/L Total Protein 8.0 (6.4-8.2) g/dL Albumin 4.0 (3.4-5.0) g/dL Globulin 4.0 (2.6-4.0) g/dL Albumin/Globulin Ratio 1.0 (0.9-1.6) Lipase 774 H (73-393) U/L Urine Color YELLOW Urine Appearance CLEAR Urine pH 6.0 (5.0-8.0) Ur Specific Burns >= 1.030 (1.001-1.035) Urine Protein NEGATIVE (NEGATIVE) mg/dL Urine Glucose (UA) NEGATIVE (NEGATIVE) mg/dL Urine Ketones NEGATIVE (NEGATIVE) mg/dL Urine Occult Blood NEGATIVE (NEGATIVE) Urine Nitrite NEGATIVE (NEGATIVE) Urine Bilirubin NEGATIVE (NEGATIVE) Urine Urobilinogen 0.2 (<2.0) EU/dL Ur Leukocyte Esterase TRACE H (NEGATIVE) Urine RBC NONE SEEN (0-2/HPF) Urine WBC 1-3 (0-5/HPF) Ur Epithelial Cells MANY (NONE-FEW) Urine Bacteria 2+ H (NEGATIVE) Influenza Type A RNA (NEGATIVE) Influenza Type B RNA (NEGATIVE) SARS-CoV-2 RNA (KESHA) (NEGATIVE) 09/25/21 Range/Units 11:50 WBC (4.0-11.0) K/uL RBC (4.30-5.90) M/uL Hgb (12.0-16.0) g/dL Hct (36.0-46.0) % MCV (80.0-98.0) fL MCH (27.0-32.0) pg MCHC (31.0-37.0) g/dL RDW Std Deviation (28.0-62.0) fl RDW Coeff of Rod (11.0-15.0) % Plt Count (150-400) K/uL MPV (7.40-12.00) fL Neut % (Auto) (48.0-80.0) % Lymph % (Auto) (16.0-40.0) % [place] % (Auto) (0.0-15.0) % Eos % (Auto) (0.0-7.0) % Baso % (Auto) (0.0-1.5) % Neut # (Auto) (1.4-5.7) K/uL Lymph # (Auto) (0.6-2.4) K/uL [place] # (Auto) (0.0-0.8) K/uL Eos # (Auto) (0.0-0.7) K/uL Baso # (Auto) (0.0-0.1) K/uL Nucleated RBC % /100WBC Nucleated RBCs # K/uL Sodium (136-145) mmol/L Potassium (3.5-5.1) mmol/L Chloride (98-107) mmol/L Carbon Dioxide (21.0-32.0) mmol/L BUN (7.0-18.0) mg/dL Creatinine (0.6-1.0) mg/dL Est Cr Clr Drug Dosing mL/min Estimated GFR (MDRD) ml/min Glucose (74-106) mg/dL Calcium (8.5-10.1) mg/dL Total Bilirubin (0.2-1.0) mg/dL AST (15-37) IU/L ALT (14-63) IU/L Alkaline Phosphatase (46-116) U/L Total Protein (6.4-8.2) g/dL Albumin (3.4-5.0) g/dL Globulin (2.6-4.0) g/dL Albumin/Globulin Ratio (0.9-1.6) Lipase (73-393) U/L Urine Color Urine Appearance Urine pH (5.0-8.0) Ur Specific Burns (1.001-1.035) Urine Protein (NEGATIVE) mg/dL Urine Glucose (UA) (NEGATIVE) mg/dL Urine Ketones (NEGATIVE) mg/dL Urine Occult Blood (NEGATIVE) Urine Nitrite (NEGATIVE) Urine Bilirubin (NEGATIVE) Urine Urobilinogen (<2.0) EU/dL Ur Leukocyte Esterase (NEGATIVE) Urine RBC (0-2/HPF) Urine WBC (0-5/HPF) Ur Epithelial Cells (NONE-FEW) Urine Bacteria (NEGATIVE) Influenza Type A RNA NEGATIVE (NEGATIVE) Influenza Type B RNA NEGATIVE (NEGATIVE) SARS-CoV-2 RNA (KESHA) NEGATIVE (NEGATIVE) Result Diagrams: 09/25/21 08:35 09/25/21 08:35 Sepsis Event Note - Evaluation Sepsis Screening Result: No Definite Risk - Focused Exam Vital Signs: Vital Signs Temp Pulse Resp BP Pulse Ox Pulse Ox 09/25/21 16:28 96 09/25/21 14:45 73 107/67 97 09/25/21 13:44 36.7 C 73 16 110/67 96 09/25/21 12:44 67 109/63 99 09/25/21 11:44 58 L 100/58 L 94 L 09/25/21 11:18 66 114/53 L 96 09/25/21 10:15 51 L 105/53 L 96 09/25/21 09:07 69 16 120/69 99 09/25/21 08:35 36.3 C 69 18 108/73 99 Consult PN Assessment/Plan Procedures: Procedures ASSAY OF AMYLASE (11/14/14) ASSAY OF LIPASE (11/14/14) COMPLETE CBC W/AUTO DIFF WBC (11/14/14) COMPREHEN METABOLIC PANEL (11/14/14) FLUOROSCOPY <1 HR PHYS/QHP (08/25/17) HELICOBACTER PYLORI ANTIBODY (11/14/14) KNEE ARTHROSCOPY/SURGERY (08/25/17) MRI JNT OF LWR EXTRE W/O DYE (05/21/17) MRI NECK SPINE W/O DYE (05/20/17) ROUTINE VENIPUNCTURE (11/14/14) X-RAY EXAM KNEE 4 OR MORE (04/15/17) (1) Abdominal pain SNOMED Code(s): 97854317 Code(s): R10.9 - UNSPECIFIED ABDOMINAL PAIN Current Visit: Yes (2) Pancreatitis, acute SNOMED Code(s): 181410322 Code(s): K85.90 - ACUTE PANCREATITIS WITHOUT NECROSIS OR INFECTION, UNSP Current Visit: Yes Qualifiers: Pancreatitis type: unspecified pancreatitis type Problem List Initiated/Reviewed/Updated: Yes Plan: Given that the patient's LFTS and bilirubin are normal, I do not feel like this is gallstone pancreatitis. I had originally suggested a HIDA scan, but her MRI showed pancreatic head inflammation. I would hold off on a HIDA scan for now as this may decrease the sensitivity of the test. I explained to the patient that she will need to be npo with IVF resuscitation. I encouraged her to work with her nurses and the hospitalist to find a pain management plan that works for her. I will follow up her labs in am and continue to follow along.
[2021-09-25] MEDS: Acetaminophen 325 MG Tab PO PRN (19:02)
[2021-09-25] MEDS: Lisinopril 10 MG Tab PO SCH (20:02)
[2021-09-25] MEDS ORDERED: Gabapentin 100 MG Cap PO SCH (21:00)
[2021-09-26] MEDS: Acetaminophen 325 MG Tab PO PRN (05:38)
[2021-09-26] MEDS: Heparin Sodium 5,000 Units/ML Vial SUBCUT SCH (05:41)
[2021-09-26] MEDS: Sodium Chloride 0.9% 1,000 ML IV SCH (05:47)
[2021-09-26 10:14] LABS: BLOOD UREA NITROGEN,BUN 11 mg/dL (7.0-18.0); CARBON DIOXIDE,CO2 25.1 mmol/L (21.0-32.0); CHLORIDE,CL 107 mmol/L (98-107); GLUCOSE RANDOM 89 mg/dL (74-106); LIPASE 167 U/L (73-393); POTASSIUM,K 4.1 mmol/L (3.5-5.1); SODIUM,NA 143 mmol/L (136-145)
[2021-09-26] MEDS: Lisinopril 10 MG Tab PO SCH (10:14)
--- NOTE | 2021-09-26 12:17 | PCM.CONSN ---
- General Info Date of Service: 09/26/21 Subjective Update: Patient was feeling well this morning but when she ate some ice chips, she developed abdominal pain again. She states that there is crampy epigastric pain when she tried to advance her diet. Functional Status: Reports: Ambulating, Urinating, New Symptoms - Review of Systems General: Reports: No Symptoms Pulmonary: Reports: No Symptoms Cardiovascular: Reports: No Symptoms Gastrointestinal: Reports: Abdominal Pain (with eating), Nausea. Denies: Vomiting Genitourinary: Reports: No Symptoms Musculoskeletal: Reports: No Symptoms - Patient Data Vitals - Most Recent: Last Vital Signs Temp 36.8 C 09/26/21 08:00 Pulse 72 09/26/21 08:00 Resp 18 09/26/21 08:00 BP 118/68 09/26/21 10:14 Pulse Ox 98 09/26/21 08:00 Weight - Most Recent: 75.886 kg I&O - Last 24 Hours: Intake & Output 09/25/21 09/26/21 09/26/21 22:59 06:59 14:59 Intake Total 1943 Output Total 300 Balance 1643 Lab Results Last 24 Hours: Laboratory Results - last 24 hr 09/25/21 09/26/21 09/26/21 Range/Units 11:50 09:19 09:19 WBC 7.04 (4.0-11.0) K/uL RBC 3.63 L (4.30-5.90) M/uL Hgb 11.0 L (12.0-16.0) g/dL Hct 32.6 L (36.0-46.0) % MCV 89.8 (80.0-98.0) fL MCH 30.3 (27.0-32.0) pg MCHC 33.7 (31.0-37.0) g/dL RDW Std Deviation 44.8 (28.0-62.0) fl RDW Coeff of Rod 14 (11.0-15.0) % Plt Count 230 (150-400) K/uL MPV 10.20 (7.40-12.00) fL Neut % (Auto) 55.0 (48.0-80.0) % Lymph % (Auto) 38.9 (16.0-40.0) % [place] % (Auto) 3.8 (0.0-15.0) % Eos % (Auto) 2.0 (0.0-7.0) % Baso % (Auto) 0.3 (0.0-1.5) % Neut # (Auto) 3.9 (1.4-5.7) K/uL Lymph # (Auto) 2.7 H (0.6-2.4) K/uL [place] # (Auto) 0.3 (0.0-0.8) K/uL Eos # (Auto) 0.1 (0.0-0.7) K/uL Baso # (Auto) 0.0 (0.0-0.1) K/uL Nucleated RBC % 0.0 /100WBC Nucleated RBCs # 0 K/uL Sodium 143 (136-145) mmol/L Potassium 4.1 (3.5-5.1) mmol/L Chloride 107 (98-107) mmol/L Carbon Dioxide 25.1 (21.0-32.0) mmol/L BUN 11 (7.0-18.0) mg/dL Creatinine 0.7 (0.6-1.0) mg/dL Est Cr Clr Drug Dosing 77.49 mL/min Estimated GFR (MDRD) > 60.0 ml/min Glucose 89 (74-106) mg/dL Calcium 8.4 L (8.5-10.1) mg/dL Total Bilirubin 0.5 (0.2-1.0) mg/dL AST 16 (15-37) IU/L ALT 24 (14-63) IU/L Alkaline Phosphatase 53 (46-116) U/L Total Protein 6.0 L (6.4-8.2) g/dL Albumin 3.1 L (3.4-5.0) g/dL Globulin 2.9 (2.6-4.0) g/dL Albumin/Globulin Ratio 1.1 (0.9-1.6) Triglycerides (0-200) mg/dL Cholesterol (50-200) mg/dL LDL Cholesterol, Calc (60-180) mg/dL VLDL Cholesterol (5-55) mg/dL HDL Cholesterol (40-60) mg/dL Cholesterol/HDL Ratio (3.3-6.0) Lipase 167 (73-393) U/L Influenza Type A RNA NEGATIVE (NEGATIVE) Influenza Type B RNA NEGATIVE (NEGATIVE) SARS-CoV-2 RNA (KESHA) NEGATIVE (NEGATIVE) 09/26/21 Range/Units 09:19 WBC (4.0-11.0) K/uL RBC (4.30-5.90) M/uL Hgb (12.0-16.0) g/dL Hct (36.0-46.0) % MCV (80.0-98.0) fL MCH (27.0-32.0) pg MCHC (31.0-37.0) g/dL RDW Std Deviation (28.0-62.0) fl RDW Coeff of Rod (11.0-15.0) % Plt Count (150-400) K/uL MPV (7.40-12.00) fL Neut % (Auto) (48.0-80.0) % Lymph % (Auto) (16.0-40.0) % [place] % (Auto) (0.0-15.0) % Eos % (Auto) (0.0-7.0) % Baso % (Auto) (0.0-1.5) % Neut # (Auto) (1.4-5.7) K/uL Lymph # (Auto) (0.6-2.4) K/uL [place] # (Auto) (0.0-0.8) K/uL Eos # (Auto) (0.0-0.7) K/uL Baso # (Auto) (0.0-0.1) K/uL Nucleated RBC % /100WBC Nucleated RBCs # K/uL Sodium (136-145) mmol/L Potassium (3.5-5.1) mmol/L Chloride (98-107) mmol/L Carbon Dioxide (21.0-32.0) mmol/L BUN (7.0-18.0) mg/dL Creatinine (0.6-1.0) mg/dL Est Cr Clr Drug Dosing mL/min Estimated GFR (MDRD) ml/min Glucose (74-106) mg/dL Calcium (8.5-10.1) mg/dL Total Bilirubin (0.2-1.0) mg/dL AST (15-37) IU/L ALT (14-63) IU/L Alkaline Phosphatase (46-116) U/L Total Protein (6.4-8.2) g/dL Albumin (3.4-5.0) g/dL Globulin (2.6-4.0) g/dL Albumin/Globulin Ratio (0.9-1.6) Triglycerides 264 H (0-200) mg/dL Cholesterol 182 (50-200) mg/dL LDL Cholesterol, Calc 89 (60-180) mg/dL VLDL Cholesterol 52 (5-55) mg/dL HDL Cholesterol 40 (40-60) mg/dL Cholesterol/HDL Ratio 4.6 (3.3-6.0) Lipase (73-393) U/L Influenza Type A RNA (NEGATIVE) Influenza Type B RNA (NEGATIVE) SARS-CoV-2 RNA (KESHA) (NEGATIVE) Med Orders - Current: Current Medications Acetaminophen (Acetaminophen 325 Mg Tab) 650 mg PO Q6H PRN PRN Reason: Headache/Pain Last Admin: 09/26/21 05:38 Dose: 650 mg Documented by: Gabapentin (Gabapentin 100 Mg Cap) 100 mg PO BEDTIME [facility] Last Admin: 09/25/21 20:02 Dose: 100 mg Documented by: Heparin Sodium (Porcine) (Heparin Sodium 5,000 Units/Ml Vial) 5,000 units SUBCUT Q8H [facility] Last Admin: 09/26/21 05:41 Dose: 5,000 units Documented by: Sodium Chloride (Normal Saline) 1,000 mls @ 150 mls/hr IV ASDIRECTED [facility] Stop: 09/26/21 14:01 Last Admin: 09/26/21 05:47 Dose: 150 mls/hr Documented by: Lisinopril (Lisinopril 10 Mg Tab) 10 mg PO BEDTIME [facility] Morphine Sulfate (Morphine 2 Mg/Ml Syringe) 2 mg IVPUSH Q2H PRN PRN Reason: Abdominal Pain Ondansetron HCl (Ondansetron 4 Mg Tab) 4 mg PO Q6H PRN PRN Reason: Nausea/Vomiting Ondansetron HCl (Ondansetron 4 Mg/2 Ml Sdv) 4 mg IVPUSH Q6H PRN PRN Reason: Nausea/Vomiting Last Admin: 09/25/21 18:18 Dose: 4 mg Documented by: Sodium Chloride (Sodium Chloride 0.9% 10 Ml Syringe) 10 ml FLUSH ASDIRECTED PRN PRN Reason: Keep Vein Open Last Admin: 09/25/21 09:10 Dose: 10 ml Documented by: Sodium Chloride (Sodium Chloride 0.9% 2.5 Ml Syringe) 2.5 ml FLUSH ASDIRECTED PRN PRN Reason: Keep Vein Open Last Admin: 09/25/21 09:10 Dose: 2.5 ml Documented by: Discontinued Medications Hydromorphone HCl (Hydromorphone 2 Mg/Ml Syringe) 1 mg IVPUSH ONETIME ONE Stop: 09/25/21 08:59 Last Admin: 09/25/21 09:13 Dose: 1 mg Documented by: Sodium Chloride (Normal Saline) 1,000 mls @ 999 mls/hr IV .Bolus ONE Stop: 09/25/21 09:47 Last Admin: 09/25/21 09:10 Dose: 999 mls/hr Documented by: Iopamidol (Iopamidol 755 Mg/Ml 500 Ml Multipack Bottle) 100 ml IVPUSH ONETIME STA Stop: 09/25/21 11:15 Last Admin: 09/25/21 11:15 Dose: 100 ml Documented by: Lisinopril (Lisinopril 10 Mg Tab) 10 mg PO DAILY [facility] Last Admin: 09/26/21 10:14 Dose: Not Given Documented by: Ondansetron HCl (Ondansetron 4 Mg/2 Ml Sdv) 4 mg IVPUSH ONETIME ONE Stop: 09/25/21 08:59 Last Admin: 09/25/21 09:13 Dose: 4 mg Documented by: Ondansetron HCl (Ondansetron 4 Mg/2 Ml Sdv) 4 mg IVPUSH Q4H PRN PRN Reason: Nausea Ondansetron HCl (Ondansetron 4 Mg/2 Ml Sdv) 4 mg IVPUSH ONETIME ONE Stop: 09/25/21 11:23 Last Admin: 09/25/21 11:34 Dose: 4 mg Documented by: - Exam General: Alert, Oriented, Cooperative Lungs: Normal Respiratory Effort Cardiovascular: Regular Rate GI/Abdominal Exam: Soft, No Distention, No Mass, Other (tender in epigastric area. ) Back Exam: Normal Inspection Extremities: Normal Inspection Sepsis Event Note - Evaluation Sepsis Screening Result: No Definite Risk - Focused Exam Vital Signs: Vital Signs Temp Pulse Resp BP BP Pulse Ox 09/26/21 10:14 118/68 09/26/21 08:00 36.8 C 72 18 118/68 98 09/26/21 04:41 36.0 C L 63 18 104/58 L 96 Consult PN Assessment/Plan Procedures: Procedures ASSAY OF AMYLASE (11/14/14) ASSAY OF LIPASE (11/14/14) COMPLETE CBC W/AUTO DIFF WBC (11/14/14) COMPREHEN METABOLIC PANEL (11/14/14) FLUOROSCOPY <1 HR PHYS/QHP (08/25/17) HELICOBACTER PYLORI ANTIBODY (11/14/14) KNEE ARTHROSCOPY/SURGERY (08/25/17) MRI JNT OF LWR EXTRE W/O DYE (05/21/17) MRI NECK SPINE W/O DYE (05/20/17) ROUTINE VENIPUNCTURE (11/14/14) X-RAY EXAM KNEE 4 OR MORE (04/15/17) (1) Abdominal pain SNOMED Code(s): 88207840 Code(s): R10.9 - UNSPECIFIED ABDOMINAL PAIN Current Visit: Yes (2) Pancreatitis, acute SNOMED Code(s): 941432664 Code(s): K85.90 - ACUTE PANCREATITIS WITHOUT NECROSIS OR INFECTION, UNSP Current Visit: Yes Qualifiers: Pancreatitis type: unspecified pancreatitis type Problem List Initiated/Reviewed/Updated: Yes Plan: Patient's lipase this am is normal. Her LFTS and bilirubin remain within normal limits. Likely the pain is due to the duodenitis associated with her pancreatitis. I would recommend adding a PPI to her daily regiment (pantoprazole 40mg) plus or minus carafate/sucralfate QID. Can try to advance diet as tolerated. If having increased abdominal pain can make NPO again. I feel an EGD would be of low yield however if her diet cannot be advanced, it can be discussed further.
--- NOTE | 2021-09-26 15:28 | PCM.DCSUM1 ---
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 During this patient's hospitalization she had an MRI of the abdomen completed which showed edema of the pancreas and adjacent duodenum. As a result it was concluded that this patient's pancreatitis is caused by duodenitis. She was initially treated with pain medication, intravenous fluids, and was put on nothing per oral. She was seen by the surgeon here at the hospital who opted out of performing a HIDA scan due to the most likely culprit causing her pancreatitis to be inflammation of the duodenum. The patient had labs done today which showed that her lipase levels had dropped down to the normal range and no other abnormalities were seen. She was transitioned to clear liquid diet and was able to tolerate it without pain, nausea, or vomiting. As a result the patient will be discharged and will follow up with Dr. Patel on October 03, 2021. She will be discharged with a prescription for pantoprazole 40 mg per oral route for 2-week course. She has been advised to return to the hospital if she has increasing abdominal pain, nausea, vomiting, hematemesis, or bloody stools. She has also been educated on the importance of being compliant with her medication and taking it at scheduled times. The patient is now stable and can be discharged home safely. - Discharge Data Discharge Date: 09/26/21 Discharge Disposition: Home, Self-Care 01 Condition: Good - Referral to Home Health Primary Care Physician: Kristen Weinberg MD - Patient Summary/Data Consults: Consultations 09/25/21 13:52 Consult to Physician [CONS] Stat - Patient Instructions Diet: Regular Diet as Tolerated Activity: As Tolerated Showering/Bathing: May Shower Other/Special Instructions: -Return to the hospital if you have increasing abdominal pain, nausea, vomiting, chest pain, palpitations. -Be compliant with your medication and take them at scheduled times. -Follow-up with surgeon and PCP - Discharge Plan Prescriptions/Med Rec: Pantoprazole [ProTONIX] 40 mg PO DAILY #14 tab.cr Home Medications: Home Meds Lisinopril 10 mg PO DAILY 08/19/17 [History] Gabapentin [Neurontin] 100 mg PO BEDTIME 09/25/21 [History] Pantoprazole [ProTONIX] 40 mg PO DAILY #14 tab.cr 09/26/21 [Rx] Oxygen Therapy Mode: Room Air Patient Handouts: Acute Pancreatitis, [id number], Pancreatitis Eating Plan, Nausea and Vomiting, Adult, [id number], Abdominal Pain, Adult, [id number], Pantoprazole tablets Referrals: Kristen Weinberg MD [Primary Care Provider] - 10/08/21 11:00 am Mera Patel MD [Physician] - 10/03/21 9:30 am - Discharge Summary/Plan Comment DC Time >30 min.: Yes Total # of Minutes for Discharge Time: 35 minutes - Review of Systems General: Denies: Fever, Weakness, Fatigue HEENT: Denies: Headaches, Sore Throat Pulmonary: Denies: Shortness of Breath, Cough Cardiovascular: Denies: Chest Pain, Palpitations Gastrointestinal: Reports: Abdominal Pain. Denies: Nausea, Vomiting Genitourinary: Denies: Dysuria - Patient Data Vitals - Most Recent: Last Vital Signs Temp 97.7 F 09/26/21 12:00 Pulse 68 09/26/21 12:00 Resp 18 09/26/21 12:00 BP 122/75 09/26/21 12:00 Pulse Ox 96 09/26/21 12:00 Weight - Most Recent: 167 lb 4.8 oz I&O - Last 24 hours: Intake & Output 09/26/21 09/26/21 09/26/21 06:59 14:59 22:59 Intake Total 1943 Output Total 300 Balance 1643 Lab Results - Last 24 hrs: Laboratory Results - last 24 hr 09/26/21 09/26/21 09/26/21 Range/Units 09:19 09:19 09:19 WBC 7.04 (4.0-11.0) K/uL RBC 3.63 L (4.30-5.90) M/uL Hgb 11.0 L (12.0-16.0) g/dL Hct 32.6 L (36.0-46.0) % MCV 89.8 (80.0-98.0) fL MCH 30.3 (27.0-32.0) pg MCHC 33.7 (31.0-37.0) g/dL RDW Std Deviation 44.8 (28.0-62.0) fl RDW Coeff of Rod 14 (11.0-15.0) % Plt Count 230 (150-400) K/uL MPV 10.20 (7.40-12.00) fL Neut % (Auto) 55.0 (48.0-80.0) % Lymph % (Auto) 38.9 (16.0-40.0) % [place] % (Auto) 3.8 (0.0-15.0) % Eos % (Auto) 2.0 (0.0-7.0) % Baso % (Auto) 0.3 (0.0-1.5) % Neut # (Auto) 3.9 (1.4-5.7) K/uL Lymph # (Auto) 2.7 H (0.6-2.4) K/uL [place] # (Auto) 0.3 (0.0-0.8) K/uL Eos # (Auto) 0.1 (0.0-0.7) K/uL Baso # (Auto) 0.0 (0.0-0.1) K/uL Nucleated RBC % 0.0 /100WBC Nucleated RBCs # 0 K/uL Sodium 143 (136-145) mmol/L Potassium 4.1 (3.5-5.1) mmol/L Chloride 107 (98-107) mmol/L Carbon Dioxide 25.1 (21.0-32.0) mmol/L BUN 11 (7.0-18.0) mg/dL Creatinine 0.7 (0.6-1.0) mg/dL Est Cr Clr Drug Dosing 77.49 mL/min Estimated GFR (MDRD) > 60.0 ml/min Glucose 89 (74-106) mg/dL Calcium 8.4 L (8.5-10.1) mg/dL Total Bilirubin 0.5 (0.2-1.0) mg/dL AST 16 (15-37) IU/L ALT 24 (14-63) IU/L Alkaline Phosphatase 53 (46-116) U/L Total Protein 6.0 L (6.4-8.2) g/dL Albumin 3.1 L (3.4-5.0) g/dL Globulin 2.9 (2.6-4.0) g/dL Albumin/Globulin Ratio 1.1 (0.9-1.6) Triglycerides 264 H (0-200) mg/dL Cholesterol 182 (50-200) mg/dL LDL Cholesterol, Calc 89 (60-180) mg/dL VLDL Cholesterol 52 (5-55) mg/dL HDL Cholesterol 40 (40-60) mg/dL Cholesterol/HDL Ratio 4.6 (3.3-6.0) Lipase 167 (73-393) U/L Med Orders - Current: Current Medications Discontinued Medications Acetaminophen (Acetaminophen 325 Mg Tab) 650 mg PO Q6H PRN PRN Reason: Headache/Pain Last Admin: 09/26/21 05:38 Dose: 650 mg Documented by: Gabapentin (Gabapentin 100 Mg Cap) 100 mg PO BEDTIME [facility] Last Admin: 09/25/21 20:02 Dose: 100 mg Documented by: Heparin Sodium (Porcine) (Heparin Sodium 5,000 Units/Ml Vial) 5,000 units SUBCUT Q8H [facility] Last Admin: 09/26/21 05:41 Dose: 5,000 units Documented by: Hydromorphone HCl (Hydromorphone 2 Mg/Ml Syringe) 1 mg IVPUSH ONETIME ONE Stop: 09/25/21 08:59 Last Admin: 09/25/21 09:13 Dose: 1 mg Documented by: Sodium Chloride (Normal Saline) 1,000 mls @ 999 mls/hr IV .Bolus ONE Stop: 09/25/21 09:47 Last Admin: 09/25/21 09:10 Dose: 999 mls/hr Documented by: Sodium Chloride (Normal Saline) 1,000 mls @ 150 mls/hr IV ASDIRECTED ELAINE Stop: 09/26/21 14:01 Last Admin: 09/26/21 05:47 Dose: 150 mls/hr Documented by: Iopamidol (Iopamidol 755 Mg/Ml 500 Ml Multipack Bottle) 100 ml IVPUSH ONETIME STA Stop: 09/25/21 11:15 Last Admin: 09/25/21 11:15 Dose: 100 ml Documented by: Lisinopril (Lisinopril 10 Mg Tab) 10 mg PO DAILY [facility] Last Admin: 09/26/21 10:14 Dose: Not Given Documented by: Lisinopril (Lisinopril 10 Mg Tab) 10 mg PO BEDTIME ELAINE Morphine Sulfate (Morphine 2 Mg/Ml Syringe) 2 mg IVPUSH Q2H PRN PRN Reason: Abdominal Pain Ondansetron HCl (Ondansetron 4 Mg/2 Ml Sdv) 4 mg IVPUSH ONETIME ONE Stop: 09/25/21 08:59 Last Admin: 09/25/21 09:13 Dose: 4 mg Documented by: Ondansetron HCl (Ondansetron 4 Mg/2 Ml Sdv) 4 mg IVPUSH Q4H PRN PRN Reason: Nausea Ondansetron HCl (Ondansetron 4 Mg/2 Ml Sdv) 4 mg IVPUSH ONETIME ONE Stop: 09/25/21 11:23 Last Admin: 09/25/21 11:34 Dose: 4 mg Documented by: Ondansetron HCl (Ondansetron 4 Mg Tab) 4 mg PO Q6H PRN PRN Reason: Nausea/Vomiting Ondansetron HCl (Ondansetron 4 Mg/2 Ml Sdv) 4 mg IVPUSH Q6H PRN PRN Reason: Nausea/Vomiting Last Admin: 09/25/21 18:18 Dose: 4 mg Documented by: Sodium Chloride (Sodium Chloride 0.9% 10 Ml Syringe) 10 ml FLUSH ASDIRECTED PRN PRN Reason: Keep Vein Open Last Admin: 09/25/21 09:10 Dose: 10 ml Documented by: Sodium Chloride (Sodium Chloride 0.9% 2.5 Ml Syringe) 2.5 ml FLUSH ASDIRECTED PRN PRN Reason: Keep Vein Open Last Admin: 09/25/21 09:10 Dose: 2.5 ml Documented by: - Exam General: Reports: Alert, Oriented, Cooperative HEENT: Reports: Mucous Membr. Moist/[place] Neck: Reports: Trachea Midline Lungs: Reports: Clear to Auscultation, Normal Respiratory Effort Cardiovascular: Reports: Regular Rate, Regular Rhythm GI/Abdominal Exam: Normal Bowel Sounds, Tender
[2021-09-26] MEDS ORDERED: Lisinopril 10 MG Tab PO SCH (21:00)
== END 2021-09-26 14:00 | disposition home or self-care (01) ==
LOC: MW.ED 08:14 → MW.MS 12:01
PROVIDERS: ADMIT Hospitalist; ATTEND Hospitalist
DX: K85.90 Acute pancreatitis without necrosis or infection, unspecified (principal); R11.0 Nausea; I10 Essential (primary) hypertension; Z88.8 Allergy status to other drugs, medicaments and biological substances; Z79.899 Other long term (current) drug therapy; Z93.2 Ileostomy status; Z98.890 Other specified postprocedural states; Z20.822 Contact with and (suspected) exposure to COVID-19
CPT/HCPCS: 0240U; 36415; 72195; 74177; 74181; 76705; 80053; 80061; 81001; 83690; 85025; 87086; 87338; 96372; 96374; 96375; 96376; 99285; A9270; G0378; J1170; J1644; J2405; J7030; Q9967